=== PATIENT | female | born 1995 | race Asian ===

== ENCOUNTER 2019-03-18 11:27 | Emergency (ER) | payer BC ==
[~2019-03-18] VITALS: Ht 162.6 cm; Wt 54.4 kg
[2019-03-18 11:40] VITALS: BP_SYST 128
--- NOTE | 2019-03-18 11:40 | NUR ---
Patient triaged and placed in waiting room. VSS and patient appears in no acute distress at this time. Accompanied by family, awaiting available bed, and MD notified of need for MSE. Urine collected for sample, and urine test.
--- NOTE | 2019-03-18 12:21 | NUR ---
Patient to ER bed 7 to gown for evaluation. Side rails up. Report given to RADHA Hasnon.
--- NOTE | 2019-03-18 12:24 | NUR ---
Pt brought by self , A&Ox4, pt presents to ER with vaginal discomfort with yellow discharge, intermittent itching , per patient she was seen recently and given acyclovir for poss vaginal lesions, pt also c/o bodyaches and fever after starting acyclovir,patient c/o constipation, afebrile at this time, no N/V noted, cap refill <3.
--- NOTE | 2019-03-18 13:12 | NUR ---
ER Dr. Martinez at bedside examining patient.
[2019-03-18] MEDS ORDERED: KETOROLAC TROMETHAMINE 60 MG/2 ML VIAL IM ONE (13:30)
--- NOTE | 2019-03-18 13:30 | NUR ---
Pelvic exam being done at bedside by Dr. Martinez with Tania, RN as [employer]ospace products sales engineer. Patient tolerated the procedure well.
[2019-03-18] MEDS ORDERED: cefTRIAXone 250 MG VIAL IM ONE (13:45)
[2019-03-18 13:58] LABS: BASOPHILS % (AUTO) 0.3 % (0.0-2.0); EOSINOPHILS % (AUTO) 0.2 % (0.0-4.0); HEMOGLOBIN 14.5 g/dL (12.0-16.0); LYMPHOCYTES # (AUTO) 1.6 K/uL (1.0-5.5); LYMPHOCYTES % (AUTO) 23.3 % (20.5-51.5); MEAN CORPUSCULAR HEMOGLOBIN 32 pg (27-31); MEAN CORPUSCULAR HGB CONC 34 % (32-36); MEAN CORPUSCULAR VOLUME 92 fL (79.0-98.0); MONOCYTES # (AUTO) 0.6 K/uL (0.0-1.0); NEUTROPHILS # (AUTO) 4.8 K/uL (1.8-7.7); NEUTROPHILS % (AUTO) 68.2 % (40.0-70.0); PLATELET COUNT (AUTO) 325 K/uL (130-430); RED BLOOD CELL COUNT(AUTO) 4.58 MIL/uL (4.2-6.2); RED CELL DISTRIBUTION WIDTH 12.3 % (9.0-15.0)
[2019-03-18 14:29] LABS: CALCIUM 8.8 mg/dL (8.4-11.0); CREATININE 0.8 mg/dL (0.55-1.30)
[2019-03-18 14:33] LABS: TOTAL BILIRUBIN 0.4 mg/dL (0.0-1.0)
[2019-03-18] MEDS ORDERED: LIDOCAINE 1%, 20 ML MDV 20 ML ONE (14:39)
[2019-03-18 14:56] LABS: BILIRUBIN,URINE NEGATIVE (NEGATIVE); CLARITY/URINE CLEAR (CLEAR); COLOR,URINE YELLOW (YELLOW); GLUCOSE,URINE NEGATIVE (NEGATIVE); KETONES,URINE NEGATIVE (NEGATIVE); LEUKOCYTE ESTERASE ,URINE 1+ (NEGATIVE); NITRITE, URINE NEGATIVE (NEGATIVE); PROTEIN URINE NEGATIVE (NEGATIVE); UROBILINOGEN,URINE 0.2 (0.2-1.0)
[2019-03-18 14:57] LABS: BLOOD, URINE TRACE (NEGATIVE)
[2019-03-18 15:11] LABS: BACTERIA,URINE FEW /HPF (None Seen); RBC,URINE 0-3 /HPF (0-3)
[2019-03-18 15:12] LABS: MUCUS,URINE 1+ /LPF (None Seen)
--- NOTE | 2019-03-18 15:26 | NUR ---
Spoke with lab, patients wet mount still pending. States, "they are still working on it." Will continue to follow up.
[2019-03-18 15:50] VITALS: BP_SYST 116
--- NOTE | 2019-03-18 15:50 | NUR ---
Patient given written and verbal discharge instructions and verbalizes understanding. ER MD discussed with patient the results and treatment provided. Patient in stable condition. ID arm band removed. Rx of Doxycycline, clotrimazole, Tylenol with Codiene, no. 3, flagyl given. Patient educated on pain management and to follow up with PMD. Pain Scale 0/10 Opportunity for questions provided and answered. Medication side effect fact sheet provided.
[2019-03-20 00:07] LABS: CHLAMYDIA TRACHOMATIS NAA Negative (Negative); NEISSERIA GONORRHOEAE NAA Negative (Negative)
== END 2019-03-18 15:50 | disposition home or self-care (01) ==
LOC: SED 11:27
DX: N76.0 Acute vaginitis (principal)
CPT/HCPCS: 36415; 80053; 81000; 81025; 85025; 87086; 87210; 87491; 87529 ×2; 87591; 96372; 99283; J0696; J1885; J2001